=== PATIENT | female | born 1990 | race Hispanic/Latino ===

== ENCOUNTER 2017-02-01 15:05 | Inpatient (IN) | payer BC ==
[~2017-02-01 15:05] MED LIST: SODIUM BICARB 8.4% 50ML SYRINGE IVP ONE
[2017-02-01] MEDS ORDERED: TERBUTALINE SULFATE VIAL 1MG/ML SQ ONE (15:58)
[2017-02-01] MEDS: LACTATED RINGERS 1000ML IV SCH ×3 (16:05→23:33)
[2017-02-01] MEDS: TERBUTALINE SULFATE VIAL 1MG/ML SQ SCH (16:09)
[2017-02-01] MEDS ORDERED: LACTATED RINGERS 1000ML 1,000 ML IV PRN (16:31)
[2017-02-01] MEDS ORDERED: OXYTOCIN-LR 20 UNITS/1000 ML 1,000 ML IV SCH (16:45)
[2017-02-01 17:41] LABS: HEMATOCRIT 33.1 % (36-48); MEAN CORPUSCULAR HEMOGLOBIN 30.9 pg (27.0-33.0); MEAN CORPUSCULAR VOLUME 90.8 fL (79-99); PLATELET COUNT (AUTO) 238 K/uL (130-400); RED BLOOD CELL COUNT(AUTO) 3.65 MIL/uL (4.00-5.50); WHITE BLOOD COUNT (AUTO) 9.8 K/uL (4.8-10.8)
[2017-02-01] MEDS: DINOPROSTONE 10 MG VAGINAL SUPP VG SCH (18:00)
[2017-02-02] MEDS: LACTATED RINGERS 1000ML IV SCH (06:51)
[2017-02-02] MEDS ORDERED: OXYTOCIN 10 USP UNITS/ML 20 UNIT in LACTATED RINGERS 1000ML 1,000 ML IV SCH (07:00)
[2017-02-02] MEDS ORDERED: NALOXONE HCL 0.4 MG/1 ML ML IV PRN (07:15)
[2017-02-02] MEDS ORDERED: ROPIVACAINE 0.2%200ML EPIDURAL 200 ML EP SCH ×2 (07:15→18:45)
[2017-02-02] MEDS ORDERED: EPHEDRINE SULFATE 50 MG/ML AMPULE IVP PRN ×2 (07:15→18:45)
[2017-02-02] MEDS ORDERED: LACTATED RINGERS 500 ML 500 ML IV PRN (07:15)
[2017-02-02] MEDS ORDERED: OXYTOCIN 10 USP UNITS/ML ONE ×3 (07:16→16:22)
[2017-02-02] MEDS ORDERED: LACTATED RINGERS 1000ML 1,000 ML IV ONE (07:16)
[2017-02-02] MEDS ORDERED: CALDOLOR 800MG+NS 250ML 250 ML IV PRN (15:15)
[2017-02-02] MEDS ORDERED: CEFAZOLIN SODIUM 1 GM VIAL IVP PRN (15:15)
[2017-02-02] MEDS ORDERED: CEFAZOLIN SODIUM 1 GM VIAL IVP ONE (15:33)
[2017-02-02] MEDS ORDERED: FENTANYL CITRATE PF 50 MCG/1 ML 2ML VIAL ONE (15:37)
[2017-02-02] MEDS: TERBUTALINE SULFATE VIAL 1MG/ML SQ SCH (15:45)
[2017-02-02] MEDS ORDERED: DURAMORPH PF1 MG/ML 10ML AMP IV ONE (15:51)
[2017-02-02] MEDS ORDERED: METHYLERGONOVINE MALEATE 0.2 MG/1 ML ML ONE (15:52)
[2017-02-02] MEDS ORDERED: METOCLOPRAMIDE 10 MG/2 ML VIAL ONE (16:16)
[2017-02-02] MEDS ORDERED: ONDANSETRON HCL 4 MG/2 ML VIAL ONE (16:16)
[2017-02-02] MEDS ORDERED: PHENYLEPHRINE HCL 10 MG/ML 1ML VIAL IV ONE (16:16)
[2017-02-02] MEDS ORDERED: MIDAZOLAM HCL 1 MG/ML 2ML VIAL ONE (16:20)
[2017-02-02] MEDS ORDERED: OXYTOCIN-LR 20 UNITS/1000 ML 1,000 ML IV PRN (16:23)
[2017-02-02] MEDS ORDERED: DIPHENHYDRAMINE HCL 25 MG CAPSULE PO PRN (16:30)
[2017-02-02] MEDS: WATER FOR INJECTION,STERILE 5 ML VIAL INJ SCH (16:30)
[2017-02-02] MEDS ORDERED: MEASLES/MUMPS/RUBELLA VACCINE, LIVE 0.5 ML/VIAL SQ SCH (16:30)
[2017-02-02] MEDS ORDERED: BISACODYL 10 MG SUPP.RECT RC PRN (16:30)
[2017-02-02] MEDS ORDERED: ACETAMINOPHEN EXTRA STRENGTH 500 MG TABLET PO PRN (16:30)
[2017-02-02] MEDS ORDERED: DIPH,PERTUSS(ACELL),TET VAC/PF 0.5 ML VIAL IM SCH (16:30)
[2017-02-02] MEDS ORDERED: PROMETHAZINE HCL 25 MG/ML 1ML AMPULE IM PRN ×2 (16:30→18:45)
[2017-02-02] MEDS ORDERED: HYDROCODONE/ACETAMINOPHEN 5/325 MG TAB PO PRN ×4 (16:30→18:45)
[2017-02-02] MEDS ORDERED: MEPERIDINE-PF 75 MG/ML SYG IM PRN (16:30)
[2017-02-02] MEDS ORDERED: SODIUM CHLORIDE 0.9% 10 ML VIAL IVP PRN (16:30)
[2017-02-02] MEDS ORDERED: LANOLIN 30GM OINTMENT TP PRN (16:30)
[2017-02-02] MEDS: IBUPROFEN 800 MG TAB PO SCH ×2 (16:30→23:26)
[2017-02-02] MEDS: DINOPROSTONE 10 MG VAGINAL SUPP VG SCH (18:00)
[2017-02-02] MEDS: CEFOXITIN SODIUM 1 GM VIAL IV SCH (18:32)
[2017-02-02] MEDS ORDERED: ONDANSETRON HCL 4 MG/2 ML 8 MG in SODIUM CHLORIDE 0.9% 50 ML IVP NR (18:45)
[2017-02-02] MEDS ORDERED: DiphenhydrAMINE HCL 50 MG/ML VIAL IVP PRN (18:45)
[2017-02-02] MEDS ORDERED: ONDANSETRON HCL 4 MG/2 ML VIAL IVP PRN ×2 (18:45)
[2017-02-02] MEDS ORDERED: MORPHINE SULFATE 2 MG/ML 1ML SYG IVP PRN (18:45)
[2017-02-02] MEDS ORDERED: METOCLOPRAMIDE 10 MG/2 ML VIAL IVP PRN (18:45)
[2017-02-02] MEDS ORDERED: NALOXONE HCL 0.4 MG/1 ML ML IVP PRN ×2 (18:45)
[2017-02-02] MEDS: DOCUSATE SODIUM 100 MG CAP PO SCH (21:00)
[2017-02-02 22:26] VITALS: BP 101/68
[2017-02-03] MEDS: DEXTROSE 5 %-0.45 % NACL 1,000 ML IV PRN ×2 (00:05→06:40)
[2017-02-03] MEDS: CALDOLOR 800MG+NS 250ML 250 ML IV SCH ×2 (00:06→08:21)
[2017-02-03] MEDS: WATER FOR INJECTION,STERILE 5 ML VIAL INJ SCH (00:30)
[2017-02-03] MEDS: CEFOXITIN SODIUM 1 GM VIAL IV SCH (02:41)
[2017-02-03 03:04] VITALS: BP 92/49
[2017-02-03 06:54] LABS: HEMATOCRIT 28.6 % (36-48); MEAN CORPUSCULAR HEMOGLOBIN 31.9 pg (27.0-33.0); MEAN CORPUSCULAR HGB CONC 34.6 g/dL (32.0-36.0); MEAN CORPUSCULAR VOLUME 92.4 fL (79-99); NUCLEATED RED BLOOD CELLS 0.1 % (0.0-0.19); PLATELET COUNT (AUTO) 185 K/uL (130-400); RED CELL DISTRIBUTION WIDTH 14.5 % (11.0-15.5); WHITE BLOOD COUNT (AUTO) 13.7 K/uL (4.8-10.8)
[2017-02-03] MEDS ORDERED: FLU VACC QS2017-18 36MOS UP/PF 60 MCG/0.5 ML ML IM SCH (07:15)
[2017-02-03 07:23] LABS: HEPATITIS Bs ANTIGEN SCREEN P Negative (Negative)
[2017-02-03 07:52] VITALS: BP 97/67
[2017-02-03] MEDS ORDERED: COLE3.75 PO (07:56)
[2017-02-03] MEDS: IBUPROFEN 800 MG TAB PO SCH ×4 (08:30→23:51)
[2017-02-03] MEDS: LIDOCAINE 5% TOPICAL PATCH TP SCH (09:31)
[2017-02-03] MEDS: DOCUSATE SODIUM 100 MG CAP PO SCH ×2 (09:31→21:19)
[2017-02-03] MEDS: SIMETHICONE 80 MG TAB.CHEW PO PRN ×4 (09:31→21:19)
[2017-02-03 11:43] VITALS: BP 108/72
[2017-02-03 15:36] VITALS: BP 105/70
[2017-02-03 19:50] VITALS: BP 110/73
[2017-02-03 23:45] VITALS: BP 101/63
[2017-02-04] MEDS: IBUPROFEN 800 MG TAB PO SCH ×2 (00:30→08:25)
[2017-02-04 04:01] VITALS: BP 101/66
[2017-02-04 07:53] VITALS: BP 104/61
[2017-02-04] MEDS: LIDOCAINE 5% TOPICAL PATCH TP SCH (08:20)
[2017-02-04] MEDS: SIMETHICONE 80 MG TAB.CHEW PO PRN (08:20)
[2017-02-04] MEDS: DOCUSATE SODIUM 100 MG CAP PO SCH (08:20)
[2017-02-04 11:33] VITALS: BP 113/73
[2017-02-04] MEDS ORDERED: DOCU-116 PO (12:04)
[2017-02-04] MEDS ORDERED: MO8B PO (12:04)
[2017-02-04] MEDS ORDERED: ACET1TAB12 PO (12:05)
== END 2017-02-04 12:55 | disposition home or self-care (01) | DRG 766 ==
LOC: LDH 15:05 → OBSVTOIN 16:31 → WSH 02-02 22:25
PROVIDERS: ADMIT Obstetrics & Gynecology; ATTEND Obstetrics & Gynecology
PROC: 10D00Z1 Extraction of Products of Conception, Low, Open Approach (ICD-10-PCS; principal; 2017-02-01)
PROC: 4A1HXCZ Monitoring of Products of Conception, Cardiac Rate, External Approach (ICD-10-PCS; 2017-02-01)
PROC: 10S0XZZ Reposition Products of Conception, External Approach (ICD-10-PCS; 2017-02-01)
PROC: 3E0234Z Introduction of Serum, Toxoid and Vaccine into Muscle, Percutaneous Approach (ICD-10-PCS; 2017-02-01)
PROC: 3E0234Z Introduction of Serum, Toxoid and Vaccine into Muscle, Percutaneous Approach (ICD-10-PCS; 2017-02-01)
PROC: 3E0134Z Introduction of Serum, Toxoid and Vaccine into Subcutaneous Tissue, Percutaneous Approach (ICD-10-PCS; 2017-02-01)
DX: O62.2 Other uterine inertia (principal); O32.1XX0 Maternal care for breech presentation, not applicable or unspecified; O77.9 Labor and delivery complicated by fetal stress, unspecified; Z37.0 Single live birth; Z3A.37 37 weeks gestation of pregnancy; Z23 Encounter for immunization
CPT/HCPCS: 36415; 82120; 85027; 86592; 86850; 86900; 86901; 87340; 90715; A4314; A4344; A4606; G0378; J0690; J0694; J1741; J2210; J2250; J2274; J2370; J2405; J2590; J2765; J3010; J3105; J3490; J7120; Q2038